=== PATIENT | female | born 1970 | race African-American/Black ===

== ENCOUNTER 2016-12-18 15:15 | Emergency (ER) | payer MEDICAID, OTHER ==
[~2016-12-18] VITALS: Ht 160 cm; Wt 78.5 kg
[2016-12-18 18:25] VITALS: BP 134/85
[2016-12-18] MEDS ORDERED: MORPHINE SULFATE 10 MG/ML VIAL. IM ONE ×2 (18:45→20:30)
--- NOTE | 2016-12-18 22:04 | RAD ---
PROCEDURE Lumbar spine MRI without contrast. HISTORY Right lower extremity radiculopathy. Pain incontinence. Saddle anesthesia. TECHNIQUE Multiplanar and multi sequence magnetic resonance imaging of the lumbar spine was performed without contrast. COMPARISON Radiographs obtained on the same date. FINDINGS There is minimal retrolisthesis of L3 on L4 and L5 on S1 and minimal grade 1 anterolisthesis of L4 on L5. There is disc desiccation at all lumbar levels, with exception of L2-L3. The conus terminates at T12. There is no suspicious osseous lesion. There is epidural lipomatosis within the lumbosacral junction. There is partial visualization of a suspected left ovarian cyst measuring at least 2.8 cm in maximum dimension. The uterus is prominent in size. At L1-L2, there is a shallow right extra foraminal disc protrusion superimposed on a minimal disc bulge and endplate remodeling. There is minimal facet arthropathy. There is no stenosis. At L2-L3, there is no stenosis. At L3-L4, there is a right extra foraminal annular tear superimposed on a disc bulge and endplate remodeling. There is minimal facet arthropathy. There is minimal bilateral foraminal stenosis. At L4-L5, there is a left extra foraminal disc protrusion superimposed on a disc bulge and endplate remodeling. There is moderate to severe bilateral facet arthropathy. There is hypertrophy of the ligamentum flavum. There is mild central canal stenosis. There is effacement of the right lateral recess and deviation of the traversing right L5 nerve root. There is a 1 cm right posterior facet joint synovial cyst. At L5-S1, there is a posterior central disc protrusion and annular tear and right foraminal to lateral disc protrusion and annular tear. This is superimposed on a disc bulge and endplate remodeling. There is mild right greater than left facet arthropathy. There is mild right foraminal stenosis with abutment of the exiting right L5 nerve root. There is moderate effacement of the thecal sac due to degenerative change and epidural lipomatosis at this level. IMPRESSION 1. Multilevel degenerative change within the lumbar spine, described in detail above. There is associated minimal bilateral foraminal stenosis L3-L4, mild central canal stenosis and effacement of the right lateral recess with deviation of the traversing right L5 nerve root at L4-L5, and mild right foraminal stenosis with abutment of the exiting right L5 nerve root at L5-S1. 2. Minimal grade 1 anterolisthesis of L4 on L5 and retrolisthesis of L3 on L4 and L5 on S1. 3. Suspected left ovarian cyst, measuring at least 2.8 cm and partially excluded from the field of view. There is a prominent uterus, also partially excluded from the field of view. Electronically signed by: Rolanda Steen (Dec 18, 2016 22:03:25)
--- NOTE | 2016-12-18 22:11 | PHYS DOC ---
Past Medical History Past Medical History: Other Additional Past Medical Histor: scoliosis, herniated disc, pinched nerve Past Surgical History: No Surgical History Additional Information: Nonsmoker Alcohol Use: None Drug Use: Marijuana Adult General Chief Complaint Chief Complaint: LOWER BACK PAIN OR INJURY HPI HPI Patient is a 46 year old female with history of chronic back pain with scoliosis, degenerative disc disease, and herniated disc who presents with increased low back pain after slipping and falling in her shower 2 days ago. The pain radiates down her right leg. She had one episode of emesis today due to the pain. She denies any head injury or loss of consciousness. She does not have any abdominal pain or incontinence of bowels. Patient admits to occasional bladder incontinence and saddle anesthesia. She states that these have been intermittent over the last 2 months, however is more constant than not. She relates that the bladder incontinence is not "just a little dribble like when you cough, but actually peeing on myself." She feels numbness between her legs when wiping after using the bathroom. She states that occasionally she uses a wet towel to cleanse herself to be sure that she is actually clean, because she cannot feel it. The patient has been seen before by a neurosurgeon at [facility]. She was reportedly told that she needs surgery on her back, but they did not want to perform the surgery because surgery could make her condition worse. They recommended a second opinion. The patient has not seen another neurosurgeon for second opinion. She has not been seen or evaluated for her back pain since the onset of the bladder incontinence or saddle anesthesia. She usually uses a cane for assistance with ambulation. Her pain is currently intense to the point where she has difficulty walking, even with the use of her cane. She has been prescribed narcotic medications for her back pain in the past. She is not currently taking any prescribed medication for her back pain. She does not have a PCP. Review of Systems Review of Systems Constitutional: Denies fever or chills. [] Eyes: Denies change in visual acuity, redness, or eye pain. [] GI: Denies abdominal pain, bloody stools or diarrhea. Reports nausea with one episode of emesis. : Denies dysuria, hematuria or urinary frequency. [] Musculoskeletal: Denies joint pain. Reports low-back pain. Integument: Denies rash or skin lesions. [] Neurologic: Denies headache, focal weakness or bowel incontinence. Denies loss of consciousness with the fall. Reports bladder incontinence and saddle anesthesia. All systems reviewed and negative unless otherwise stated in the HPI. Current Medications Current Medications Current Medications Medications (Trade) Dose Ordered Sig/Rangel Start Time Stop Time Status Last Admin Dose Admin Morphine Sulfate 5 mg 1X ONCE 12/18/16 20:30 12/18/16 20:31 DC 12/18/16 20:49 5 MG Allergies Allergies Allergies Coded Allergies Type Severity Reaction Last Updated Verified metronidazole Allergy Intermediate Nausea 12/18/16 Yes Physical Exam Physical Exam Constitutional: Well developed, well nourished, no acute distress, non-toxic appearance. [] HENT: Normocephalic, atraumatic, oropharynx moist. [] Eyes: PERRLA, EOMI, conjunctiva normal, no discharge. [] Neck: Normal range of motion, no tenderness, supple, no stridor. [] Cardiovascular: Heart rate regular rhythm, no murmur. [] Lungs & Thorax: Bilateral breath sounds clear to auscultation without wheezes, rales, or rhonchi. [] Abdomen: Bowel sounds normal, soft, no tenderness, no masses, no pulsatile masses. [] Rectal: The patient does have perirectal sensation. She has good rectal tone. Skin: Warm, dry, no erythema, no rash. [] Back: Diffuse lumbar midline tenderness without step-off deformity, no CVA tenderness. There is tenderness of the right lumbar paraspinal muscles. Extremities: No tenderness, ROM intact, no edema. Distal pulses equal bilaterally. [] Neurologic: Alert and oriented X 3, normal motor function, normal sensory function, no focal deficits noted. Patient is able to stand and transfer from wheelchair to exam table with the assistance of her cane. Psychologic: Affect normal, judgement normal, mood normal. [] Current Patient Data Vital Signs Vital Signs Date Time Temp Pulse Resp B/P Pulse Ox O2 Delivery O2 Flow Rate FiO2 12/18/16 20:49 20 97 Room Air 12/18/16 18:25 99.1 91 99.1 Lab Values Laboratory Tests Test 12/18/16 18:36 POC Urine HCG, Qualitative Hcg negative (Negative) EKG EKG [] Radiology/Procedures Radiology/Procedures Three-view x-ray of the lumbar spine reviewed and interpreted by myself with Dr. Michel. There are no acute fractures or dislocations. REASON: low back pain with loss of bladder control and saddle anesthesia PROCEDURE: LUMBAR SPINE WO CONTRAST PROCEDURE Lumbar spine MRI without contrast. HISTORY Right lower extremity radiculopathy. Pain incontinence. Saddle anesthesia. TECHNIQUE Multiplanar and multi sequence magnetic resonance imaging of the lumbar spine was performed without contrast. COMPARISON Radiographs obtained on the same date. FINDINGS There is minimal retrolisthesis of L3 on L4 and L5 on S1 and minimal grade 1 anterolisthesis of L4 on L5. There is disc desiccation at all lumbar levels, with exception of L2-L3. The conus terminates at T12. There is no suspicious osseous lesion. There is epidural lipomatosis within the lumbosacral junction. There is partial visualization of a suspected left ovarian cyst measuring at least 2.8 cm in maximum dimension. The uterus is prominent in size. At L1-L2, there is a shallow right extra foraminal disc protrusion superimposed on a minimal disc bulge and endplate remodeling. There is minimal facet arthropathy. There is no stenosis. At L2-L3, there is no stenosis. At L3-L4, there is a right extra foraminal annular tear superimposed on a disc bulge and endplate remodeling. There is minimal facet arthropathy. There is minimal bilateral foraminal stenosis. At L4-L5, there is a left extra foraminal disc protrusion superimposed on a disc bulge and endplate remodeling. There is moderate to severe bilateral facet arthropathy. There is hypertrophy of the ligamentum flavum. There is mild central canal stenosis. There is effacement of the right lateral recess and deviation of the traversing right L5 nerve root. There is a 1 cm right posterior facet joint synovial cyst. At L5-S1, there is a posterior central disc protrusion and annular tear and right foraminal to lateral disc protrusion and annular tear. This is superimposed on a disc bulge and endplate remodeling. There is mild right greater than left facet arthropathy. There is mild right foraminal stenosis with abutment of the exiting right L5 nerve root. There is moderate effacement of the thecal sac due to degenerative change and epidural lipomatosis at this level. IMPRESSION 1. Multilevel degenerative change within the lumbar spine, described in detail above. There is associated minimal bilateral foraminal stenosis L3-L4, mild central canal stenosis and effacement of the right lateral recess with deviation of the traversing right L5 nerve root at L4-L5, and mild right foraminal stenosis with abutment of the exiting right L5 nerve root at L5-S1. 2. Minimal grade 1 anterolisthesis of L4 on L5 and retrolisthesis of L3 on L4 and L5 on S1. 3. Suspected left ovarian cyst, measuring at least 2.8 cm and partially excluded from the field of view. There is a prominent uterus, also partially excluded from the field of view. Course & Med Decision Making Course & Med Decision Making Pertinent Labs and Imaging studies reviewed. (See chart for details) Patient is a 46 year old female history of chronic low-back pain who presents with increase in her pain after fall 2 days ago. She also has had bladder incontinence or saddle anesthesia intermittently for 2 months without evaluation previously. On exam, she has midline tenderness of the lumbar spine without step-off or deformity. She has sensation in the perirectal region and good rectal tone. She is able to transfer from wheelchair to bed with assistance of her cane and bear weight on her legs. X-ray of the lumbar spine does not show any acute fractures or dislocations. I consulted [facility] with Dr. Chew. She requests MRI of the lumbar spine without contrast while in the emergency department to evaluate the patient's bladder incontinence and saddle anesthesia, as it has not previously been evaluated. MRI does not show any signs of cauda equina or acute injury. I discussed the MRI results with Aleksandra. The patient is instructed to follow-up in their office as an outpatient and call for an appointment on Wednesday. The patient's pain was improved with IM injections of morphine. She was able to ambulate to the bathroom with the use of her cane without difficulty. She is discharged home with prescriptions for Percocet and Robaxin. Return precautions were discussed. She verbalizes understanding and agrees with plan. Dragon Disclaimer Dragon Disclaimer This electronic medical record was generated, in whole or in part, using a voice recognition dictation system. Departure Departure Impression: Primary Impression: Low back pain Disposition: HOME, SELF-CARE Condition: IMPROVED Referrals: AKANKSHA CATALAN DO (PCP) KARIN CHEW MD Patient Instructions: Back Pain, Adult, [id number] Additional Instructions: Your x-ray does not show any broken bones. Your MRI does not show any new changes. Please take the prescribed medications as directed. Do not drive or operate heavy machinery while taking pain medication or muscle relaxers. Please follow-up with the neurosurgeon listed below regarding your back pain. Call on Wednesday to schedule an appointment. Return to emergency department if you have any new or concerning symptoms. Scripts Methocarbamol (Robaxin)500 Mg [id number] Mg PO QID #20 TAB Prov:NUPUR EVANS 12/18/16 Oxycodone/Apap 5-325 (Percocet 5-325 Mg Tablet)1 Each Tablet1 Tab PO PRN Q6HRS PRN PAIN #20 TAB Prov:NUPUR EVANS 12/18/16 Problem Qualifiers Primary Impression: Low back pain Chronicity: chronic Back pain laterality: midline Sciatica presence: with sciatica Sciatica laterality: sciatica of right side Qualified Code: M54.41 - Lumbago with sciatica, right side NUPUR EVANS Dec 18, 2016 22:11
[2016-12-18] MEDS ORDERED: OXYC-323 PO (22:54)
[2016-12-18] MEDS ORDERED: METH-37 PO (22:54)
--- NOTE | 2016-12-19 08:53 | RAD ---
LUMBAR SPINE 2-3V History:fall in shower 2 days ago Comparison: None Findings:3 views lumbar spine are submitted. There is multilevel lumbar facet degenerative change, negligible anterior spondylolisthesis at L4-5. Lumbar vertebral body stature is maintained. There is mild S shaped scoliosis of the lumbar spine. No acute fracture is identified by radiographs. Calcifications in the right pelvis are probably due to phleboliths. Impression: 1.No acute osseous abnormality is identified by radiographs. There is multilevel lumbar facet degenerative change, minimal grade 1 anterior spondylolisthesis at L4-5. There is mild S shaped scoliosis.
== END 2016-12-18 23:22 | disposition home or self-care (01) ==
LOC: ER 15:15
DX: M54.41 Lumbago with sciatica, right side (principal); M41.9 Scoliosis, unspecified; F12.10 Cannabis abuse, uncomplicated; Z88.8 Allergy status to other drugs, medicaments and biological substances
CPT/HCPCS: 72100; 72148; 81025; 96372; 99284; J2270